=== PATIENT | male | born 1970 | race Two or more races ===

== ENCOUNTER 2016-03-14 11:00 | Emergency (ER) | payer OTHER ==
[~2016-03-14] VITALS: Ht 175.3 cm; Wt 72.0 kg
[2016-03-14 11:17] VITALS: BP 114/84; PULSE 110; RESP 18; TEMP 98.9; O2SAT 96
[2016-03-14 11:54] LABS: BLOOD, URINE SMALL (NEG); GLUCOSE,URINE NEG (NEG); KETONE, URINE NEG (NEG); NITRITE,URINE NEG (NEG)
[2016-03-14 11:58] LABS: METHOD OF COLLECTION CLEAN CATCH
[2016-03-14] MEDS ORDERED: ALBUAER3 INH (11:58)
[2016-03-14] MEDS ORDERED: ADVA250A INH (11:58)
[2016-03-14] MEDS ORDERED: ALBU0.08 NEB (11:58)
[2016-03-14 11:59] LABS: URINE COLOR YELLOW (YELLW/STRAW)
[2016-03-14 12:00] LABS: BACTERIA, URINE OCC /hpf; COMMENT (UR) CULTURE INDICATED; CULTURE IF INDICATED CULTURE INDICATED; RBC, URINE 15-19 /hpf (0-3); SQUAMOUS EPITHELIAL CELL URINE 0-5 /hpf (0-5); WBC, URINE INNUM /hpf (0-5)
[2016-03-14] MEDS ORDERED: metroNIDAZOLE 500 MG TAB PO ONE (13:00)
[2016-03-14] MEDS ORDERED: AZITHROMYCIN 250 MG TAB PO ONE (13:00)
[2016-03-14] MEDS ORDERED: ONDANSETRON ODT 4 MG TAB PO ONE (13:00)
[2016-03-14] MEDS ORDERED: RESP: ALBUTEROL 2.5 MG/IPRATROPIUM 0.5 MG NEB (SCH) NEB ONE (13:00)
[2016-03-14] MEDS ORDERED: cefTRIAXone 250 MG VIAL IM ONE (13:00)
[2016-03-14] MEDS ORDERED: LEVA500T PO (13:12)
--- NOTE | 2016-03-14 13:13 | PD ---
HPI Chief Complaint: Complaint Time Seen by Provider: 11:57 Travel History International Travel<30 days: No Contact w/Intl Traveler<30days: No Traveled to known affect area: No History of Present Illness HPI Patient's 45-year-old male presents to emergency department today for complaints of burning urination as well as penile discharge. Patient states his been going on for approximately a week. He is homosexual and has anal sex with his who is accompanied by today. They are monogamous and he has not had the symptoms before. They do not use condoms when having sex. No fevers no abdominal pain. Patient is secondary complaint of his asthma is mildly flared up on him. He has been having mild cough and congestion without fevers no sputum production. States using his nebulizers at home with relief. PFSH Past Medical History Asthma: Yes Respiratory: Yes (ASTHMA) Tetanus Vaccination: > 5 Years Influenza Vaccination: No Past Surgical History Appendectomy: Yes Other Surgery: Yes (rib cage) Social History Alcohol Use: Yes Tobacco Use: No Substance Use: No Allergies-Medications (Allergen,Severity, Reaction): Coded Allergies: Iodine (Verified Allergy, Severe, SWELLING, 03/14/16) Prednisone (Verified Allergy, Severe, HICCUPS, 03/14/16) Shellfish (Verified Allergy, Severe, SWELLING, 03/14/16) Reported Meds & Prescriptions Reported Meds & Active Scripts Active Levaquin (Levofloxacin) 500 Mg Tab 500 Mg PO DAILY 7 Days Reported Albuterol Neb (Albuterol Sulfate) 2.5 Mg/3 Ml Neb 2.5 Mg NEB ONCE Proair Hfa 8.5 GM Inh (Albuterol Sulfate) 90 Mcg/Act Aer 2 Puff INH Q4-6H PRN 108 mcg/actuation Advair Diskus Inh (Fluticasone-Salmeterol Inh) 250-50 Mcg/Blist Aer 1 Puff INH BID Rinse mouth after use. Review of Systems Except as stated in HPI: all other systems reviewed are Neg Physical Exam Narrative GENERAL: Well-developed well-nourished no apparent distress SKIN: Warm and dry. HEAD: Atraumatic. Normocephalic. EYES: Pupils equal and round. No scleral icterus. No injection or drainage. ENT: No nasal bleeding or discharge. Mucous membranes pink and moist. NECK: Trachea midline. No JVD. CARDIOVASCULAR: Regular rate and rhythm. No murmur appreciated. RESPIRATORY: No accessory muscle use. Good air entry bilaterally without any increased work of breathing. There is an end expiratory wheeze only. This present throughout all lung mack. GASTROINTESTINAL: Abdomen soft, non-tender, nondistended. Hepatic and splenic margins not palpable. GENITOURINARY: Circumcised penis, there is no Q wave green discharge at the urethral meatus. Nontender, scrotum and testes normal. MUSCULOSKELETAL: No obvious deformities. No clubbing. No cyanosis. No edema. NEUROLOGICAL: Awake and alert. No obvious cranial nerve deficits. Motor grossly within normal limits. Normal speech. PSYCHIATRIC: Appropriate mood and affect; insight and judgment normal. Data Data Last Documented VS Vital Signs Date Time Temp Pulse Resp B/P Pulse Ox O2 Delivery O2 Flow Rate FiO2 03/14/16 11:17 98.9 110 18 114/84 96 Orders Urinalysis - C+S If Indicated (03/14/16 11:24) Urine Culture (03/14/16 11:40) Gc And Chlamydia Pcr (03/14/16 12:09) Ceftriaxone Inj (Rocephin Inj) (03/14/16 13:00) Azithromycin (Zithromax) (03/14/16 13:00) Metronidazole (Flagyl) (03/14/16 13:00) Ondansetron Odt (Zofran Odt) (03/14/16 13:00) Albuterol-Ipratropium Neb (Duoneb Neb) (03/14/16 13:00) Labs Laboratory Tests Test 03/14/16 03/14/16 11:24 11:40 Chlamydia trachomatis DNA DETECTED (PCR) Neisseria gonorrhoeae DNA DETECTED (PCR) Urine Collection Type CLEAN CATCH Urine Color YELLOW Urine Turbidity SLIGHT Urine pH 6.0 Urine Specific [place] 1.026 Urine Protein TRACE mg/dL Urine Glucose (UA) NEG mg/dL Urine Ketones NEG mg/dL Urine Occult Blood SMALL Urine Nitrite NEG Urine Bilirubin NEG Urine Leukocyte Esterase LARGE Urine RBC 15-19 /hpf Urine WBC INNUM /hpf Urine WBC Clumps FEW Urine Squamous Epithelial 0-5 /hpf Cells Urine Bacteria OCC /hpf Microscopic Urinalysis Comment CULTURE INDICATED Urine Collection Time 11:40 [facility] Medical Decision Making Medical Screen Exam Complete: Yes Emergency Medical Condition: Yes Differential Diagnosis Urethritis, nongonococcal urethritis, STD, UTI, mild asthma exacerbation. Narrative Course Patient will be covered for STD varieties of urethritis, Rocephin and azithromycin and Flagyl. Given his anal sex history we'll cover for nongonococcal as well as Levaquin this may also provide some respiratory support though there is no indication he has pneumonia at this time. He was given a DuoNeb in the emergency department and lungs were clearing and he wishes to go home. Diagnosis Primary Impression: Asthma exacerbation Additional Impression: Urethritis Additional Instructions: Follow up with your primary care physician in the health department for further testing. No alcohol for 48 hours, no sex for a week. Med/Other Pt SpecificInfo: Prescription(s) given Scripts Levofloxacin (Levaquin)500 Mg Mss422 Mg PO DAILY 7 Days Ref 0 Prov:Jd Santoro MD 03/14/16 Disposition: 01 DISCHARGE HOME Condition: Stable Jd Santoro MD Mar 14, 2016 13:13
[2016-03-14 19:58] LABS: CHLAMYDIA PCR DETECTED (NOT DETECT); NEISSERIA PCR DETECTED (NOT DETECT)
== END 2016-03-14 13:46 | disposition home or self-care (01) ==
LOC: PHED 11:00
DX: J45.901 Unspecified asthma with (acute) exacerbation (principal); N34.2 Other urethritis; R36.9 Urethral discharge, unspecified
CPT/HCPCS: 81001; 87086; 87491; 87591; 94664; 96372; 99283; J0696